=== PATIENT | male | born 1990 | race Two or more races ===

== ENCOUNTER 2024-03-04 16:27 | Emergency (ER) | payer SELFPAY ==
[~2024-03-04] VITALS: Ht 175.3 cm; Wt 72.6 kg
[2024-03-04 18:27] LABS: BASOPHILS % (AUTO) 1.4 % (0.0-2.0); EOSINOPHILS % (AUTO) 0.8 % (0.0-7.0); HEMATOCRIT 27.4 % (36.7-47.1); HEMOGLOBIN 8.7 g/dL (12.5-16.3); LYMPHOCYTES % (AUTO) 36.7 % (20.5-51.5); MEAN CORPUSCULAR HEMOGLOBIN 25.9 uug (23.8-33.4); MEAN CORPUSCULAR HGB CONC 32 g/dL (32.5-36.3); MEAN CORPUSCULAR VOLUME 81.6 fL (73.0-96.2); MONOCYTES # (AUTO) 0.2 K/uL (0.1-1.30); MONOCYTES % (AUTO) 7.6 % (0.0-11.0); NEUTROPHILS # (AUTO) 1.4 K/uL (1.8-8.9); NEUTROPHILS % (AUTO) 53.5 % (38.5-71.5); PLATELET COUNT (AUTO) 439 K/uL (152-348); RED BLOOD CELL COUNT(AUTO) 3.36 MIL/uL (4.06-5.63); RED CELL DISTRIBUTION WIDTH 19.5 % (12.1-16.2); WHITE BLOOD COUNT (AUTO) 2.7 K/uL (3.6-10.2)
[2024-03-04 18:40] LABS: CALCIUM 8.1 mg/dL (8.5-10.1); CARBON DIOXIDE 24 mmol/L (21-32); CHLORIDE 98 mmol/L (98-107); CREATININE 0.8 mg/dL (0.6-1.3); DIFFERENTIAL COMMENT 1; GLUCOSE 99 mg/dL (74-106); POTASSIUM 3.7 mmol/L (3.5-5.1); SODIUM SERUM 141 mmol/L (136-145); UREA NITROGEN, BLOOD 6 mg/dL (7-18)
[2024-03-04 18:48] LABS: ALANINE AMINOTRANSFERASE 52 U/L (16-63); ALBUMIN 3.8 g/dL (3.4-5.0); ALKALINE PHOSPHATASE 78 U/L (50-136); ASPARTATE AMINOTRANSFERASE 141 U/L (15-37); BILIRUBIN,DIRECT 0.2 mg/dL (0.0-0.2); BILIRUBIN,TOTAL 0.5 mg/dL (0.2-1.0)
[2024-03-04] MEDS: IV NORMAL SALINE 1000 ML BAG IV ONE (18:51)
[2024-03-04 19:16] LABS: ETHANOL 340 MG/DL (0-10)
[2024-03-04 20:46] LABS: *AMPHETAMINE, URINE POSITIVE (NEGATIVE); *BARBITURATE, URINE NEGATIVE (NEGATIVE); *BENZODIAZEPINE, URINE NEGATIVE (NEGATIVE); *CANNABINOID, URINE NEGATIVE (NEGATIVE); *COCCAINE, URINE NEGATIVE (NEGATIVE); *OPIATE, URINE NEGATIVE (NEGATIVE); *PHENCYCLIDINE SCREEN,URINE NEGATIVE (NEGATIVE); FENTANYL, URINE NEGATIVE (NEGATIVE)
[2024-03-05] MEDS ORDERED: ACETAMINOPHEN 500 MG TABLET ONE (06:14)
[2024-03-05] MEDS: ACETAMINOPHEN 500 MG TABLET PO ONE (06:18)
[2024-03-05 06:21] VITALS: BP 114/78; TEMP 97.8; O2SAT 98
== END 2024-03-05 06:21 | disposition home or self-care (01) ==
LOC: ER 16:27
DX: F10.129 Alcohol abuse with intoxication, unspecified (principal); F15.10 Other stimulant abuse, uncomplicated; R10.13 Epigastric pain; Z59.00 Homelessness unspecified; Z20.822 Contact with and (suspected) exposure to COVID-19; Y90.8 Blood alcohol level of 240 mg/100 ml or more
CPT/HCPCS: 80076; 80048; 85025; 87426; 84484; 36415 ×2; 99285; 96360; 80320 ×2; 80307; 83690; 74176; J7040; A4606; A4663; A9150; G0480